=== PATIENT | male | born 1955 | race Two or more races ===

== ENCOUNTER 2024-11-02 21:00 | Inpatient (IN) | payer OTHER ==
[~2024-11-02] VITALS: Ht 167.6 cm; Wt 70.8 kg
[2024-11-02] MEDS ORDERED: LEVALBUTEROL HCL 1.25 MG/3 ML SOLUTION IH SCH (21:25)
[2024-11-02] MEDS ORDERED: PIPERACILLIN/TAZOBACTAM SODIUM 2.25 GM in DEXTROSE 5 % IN WATER 50 ML IV SCH (21:25)
[2024-11-02] MEDS ORDERED: 0.9 % SODIUM CHLORIDE 1,000 ML IV SCH ×2 (21:30→22:30)
[2024-11-02] MEDS ORDERED: LEVALBUTEROL HCL 1.25 MG/3 ML SOLUTION IH ONE (22:21)
[2024-11-02] MEDS ORDERED: IPRATROPIUM BROMIDE 0.5 MG/2.5 ML AMPUL.NEB IH SCH (22:24)
[2024-11-02 22:28] LABS: HEMATOCRIT 32.1 % (39.0-48.0); HEMOGLOBIN 10.6 g/dL (13-16.00); MEAN CELL VOLUME 90.5 fL (80.0-100.00); MEAN CORPUSCULAR HEMOGLOBIN 29.8 pg (27.00-32.0); MEAN CORPUSCULAR HGB CONC 32.9 g/dl (32.0-36.0); PLATELET COUNT 201 K/uL (150-450); RED BLOOD COUNT 3.55 M/uL (4.00-6.00); RED CELL DISTRIBUTION WIDTH 14.8 % (11.5-14.5)
[2024-11-02] MEDS ORDERED: ONDANSETRON HCL 4 MG in 0.9 % SODIUM CHLORIDE 50 ML IV PRN (22:30)
[2024-11-02] MEDS ORDERED: ACETAMINOPHEN 500 MG GEL..CAP PO PRN (22:30)
[2024-11-02 22:31] LABS: ABG pCO2 36.4 mmHg (35-45); BASE EXCESS -2.2 mmol/l; SaO2 97.1 %; Tco2 23.1 mmol/l
[2024-11-02 22:51] LABS: BILIRUBIN TOTAL 0.36 mg/dL (0.3-1.2); CALCIUM 8.8 mg/dL (8.5-10.1); CREATININE SERUM 1.46 mg/dL (0.70-1.30); GFR 47.87; GLOBULINA 3.4 G/DL (2.4-3.5); POTASSIUM 4.59 mEq/L (3.5-5.1); TOTAL PROTEIN 6.4 gm/dL (6.4-8.2)
[2024-11-02 22:53] LABS: o2 32 %
[2024-11-02 22:54] LABS: allen test SATISFACTORY; mode NASAL CANNULA; puncture site RADIAL LEFT
[2024-11-02 22:58] LABS: INR 1.1; PARTIAL THROMBOPLASTIN TIME 26.5 SECONDS (22.0-34.0); PROTHROMBIN TIME 11.9 SECONDS (9.0-11.5)
[2024-11-03] MEDS ORDERED: LEVALBUTEROL HCL 1.25 MG/3 ML SOLUTION IH SCH (01:00)
[2024-11-03 01:56] LABS: URINE APPEARANCE Clear; URINE BILIRRUBIN Negative (NEGATIVE); URINE BLOOD Negative; URINE COLOR Yellow; URINE GLUCOSE Negative (NEGATIVE); URINE KETONE Negative (NEGATIVE); URINE LEUKOCYTE Small; URINE NITRATE Negative; URINE PROTEIN Negative (NEGATIVE); URINE UROBILINOGEN 0.2 E.U./dl
[2024-11-03 02:00] LABS: URINE BACTERIA 166.4 uL (0.0-1933); URINE CAST 3.23 uL (0.0-1.40); URINE EPITHELIAL CELLS 8.3 uL (0.0-38.8); URINE RBC 8.1 uL (0.0-20.8); URINE WBC 18.3 uL (0.0-23.2)
[2024-11-03 02:04] LABS: COVID-19 AG NEGATIVE (NEGATIVE)
[2024-11-03 04:30] VITALS: BP 123/65; O2SAT 94
[2024-11-03] MEDS ORDERED: LEVOTHYROXINE SODIUM 25 MCG TABLET PO SCH (06:00)
[2024-11-03] MEDS ORDERED: ENOXAPARIN SODIUM 30 MG/0.3 ML SYRINGE SUBCUTANEO SCH (09:00)
[2024-11-03] MEDS ORDERED: LevETIRAcetam 500 MG TAB. PO SCH (09:00)
[2024-11-03] MEDS ORDERED: LOSARTAN POTASSIUM 100 MG TABLET PO SCH (09:00)
[2024-11-03] MEDS ORDERED: FAMOTIDINE/PF 20 MG in 0.9 % SODIUM CHLORIDE 8 ML IV PUSH SCH (09:00)
[2024-11-03 09:21] VITALS: BP 126/69; O2SAT 94
[2024-11-03] MEDS ORDERED: AMLODIPINE BESYLATE 5 MG TABLET PO SCH (12:00)
[2024-11-03 16:00] VITALS: BP 146/74; O2SAT 99
[2024-11-03] MEDS ORDERED: QUETIAPINE FUMARATE 100 MG TABLET PO SCH (17:00)
[2024-11-03] MEDS ORDERED: DONEPEZIL HCL 10 MG TABLET PO SCH (17:00)
[2024-11-03] MEDS ORDERED: MEROPENEM 500 MG/VIAL VIAL IV SCH (17:00)
[2024-11-03 19:54] LABS: ABG PH 7.434 (7.35-7.45); ABG PO2 73.1 mmHg (80-100); ABG pCO2 35.5 mmHg (35-45); BASE EXCESS -0.4 mmol/l; BICARBONATE 23.3 mmol/l (23-25); Tco2 24.4 mmol/l
[2024-11-03 20:31] LABS: allen test SATISFACTORY; mode ROOM AIR; o2 21 %; puncture site RADIAL LEFT
[2024-11-03] MEDS ORDERED: LORazepam 1 MG TABLET PO SCH (21:00)
[2024-11-04 01:07] VITALS: BP 125/57
[2024-11-04 05:46] LABS: HEMATOCRIT 29.5 % (39.0-48.0); HEMOGLOBIN 9.9 g/dL (13-16.00); MEAN CELL VOLUME 90.8 fL (80.0-100.00); MEAN CORPUSCULAR HEMOGLOBIN 30.4 pg (27.00-32.0); MEAN CORPUSCULAR HGB CONC 33.5 g/dl (32.0-36.0); PLATELET COUNT 162 K/uL (150-450); RED BLOOD COUNT 3.25 M/uL (4.00-6.00); RED CELL DISTRIBUTION WIDTH 14.9 % (11.5-14.5)
[2024-11-04 06:35] LABS: ALBUMIN 2.7 gm/dL (3.4-5.0); BILIRUBIN TOTAL 0.3 mg/dL (0.3-1.2); CALCIUM 8.4 mg/dL (8.5-10.1); CREATININE SERUM 1.31 mg/dL (0.70-1.30); GFR 54.25; GLOBULINA 2.8 G/DL (2.4-3.5); MAGNESIUM 1.9 mg/dL (1.8-2.4); PHOSPHOROUS 2.9 mg/dL (2.5-4.9); POTASSIUM 4.45 mEq/L (3.5-5.1); TOTAL PROTEIN 5.5 gm/dL (6.4-8.2)
[2024-11-04 06:38] LABS: C-REACTIVE PROTEIN 2.65 MG/DL (0.00-0.29)
[2024-11-04 18:25] VITALS: BP 178/87
[2024-11-05 01:18] VITALS: BP 132/80; O2SAT 199
[2024-11-05 09:33] VITALS: BP 153/81
[2024-11-05 17:50] VITALS: BP 170/80
[2024-11-06 01:00] VITALS: BP 105/69; O2SAT 96
[2024-11-06 09:30] VITALS: BP 150/82
[2024-11-06 19:36] VITALS: BP 174/84
== END 2024-11-06 20:40 | disposition home or self-care (01) | DRG 871 ==
LOC: ER 21:00 → MEDI 22:50
PROVIDERS: General Practice; Internal Medicine; Internal Medicine Infectious Disease; ADMIT Internal Medicine; ATTEND Internal Medicine
PROC: BT4JZZZ Ultrasonography of Kidneys and Bladder (ICD-10-PCS; 2024-11-02)
PROC: 3E0F7GC Introduction of Other Therapeutic Substance into Respiratory Tract, Via Natural or Artificial Opening (ICD-10-PCS; 2024-11-02)
PROC: BB24ZZZ Computerized Tomography (CT Scan) of Bilateral Lungs (ICD-10-PCS; principal; 2024-11-03)
DX: A41.9 Sepsis, unspecified organism (principal); J18.9 Pneumonia, unspecified organism; J69.0 Pneumonitis due to inhalation of food and vomit; N17.8 Other acute kidney failure; I10 Essential (primary) hypertension; E03.9 Hypothyroidism, unspecified; F03.90 Unspecified dementia, unspecified severity, without behavioral disturbance, psychotic disturbance, mood disturbance, and anxiety

== ENCOUNTER 2025-02-11 23:03 | Inpatient (IN) | payer OTHER ==
[~2025-02-11] VITALS: Ht 167.6 cm; Wt 72.6 kg
[2025-02-11] MEDS ORDERED: COZAAR100 MG (23:21)
[2025-02-11] MEDS ORDERED: NAMENDA (23:22)
[2025-02-11] MEDS ORDERED: SEROQUEL (23:22)
[2025-02-11] MEDS ORDERED: ATIVAN2 M1 (23:22)
[2025-02-11] MEDS ORDERED: ARICEPT5 MG (23:22)
[2025-02-11] MEDS ORDERED: KEPPRA (23:23)
[2025-02-12] MEDS ORDERED: 0.9 % SODIUM CHLORIDE 1,000 ML IV SCH (01:00)
[2025-02-12 01:58] LABS: BASO % 0.1 % (0.1-1.2); EOS # 0.00 (0.04-0.54); EOS % 0.0 % (0.7-7.0); LYMPH # 0.57 (1.18-3.74); LYMPH % 2.8 % (19.3-53.1); MEAN PLATELET VOLUME 11.40 fl (9.4-12.4); MONO # 0.87 (0.24-0.82); MONO % 4.2 % (4.7-12.5); NEUT # 18.92 (1.56-6.13); NEUT % 92.1 % (34.0-71.1); RED CELL DISTRIBUTION WIDTH 13.5 % (11.6-14.4)
[2025-02-12 02:25] LABS: ALT/SGPT 15.0 U/L (12-78); AST/SGOT 6.0 U/L (15-37); BILIRUBIN TOTAL 0.36 mg/dL (0.3-1.2); BUN CREA RATIO 22.0 (7.0-25.0); CREATININE SERUM 1.62 mg/dL (0.70-1.30); GFR 42.46; GLOBULINA 3.6 G/DL (2.4-3.5); LDH 112.0 U/L (87-241); OSMOLALITY SERUM 298.0 MOSM/KG (275-295); PHOSPHOKINASE CREATININE 45.0 U/L (39-308)
[2025-02-12 02:56] LABS: GLUCOSE FASTING 223.0 mg/dL (65-100)
[2025-02-12] MEDS ORDERED: CEFTRIAXONE SODIUM 2,000 MG VIAL ONE (03:07)
[2025-02-12] MEDS ORDERED: CEFTRIAXONE SODIUM 2,000 MG VIAL IV ONE (03:15)
[2025-02-12 03:20] LABS: COVID-19 AG NEGATIVE (NEGATIVE)
[2025-02-12 03:43] LABS: URINE APPEARANCE Clear; URINE BILIRRUBIN Negative (NEGATIVE); URINE BLOOD Negative; URINE COLOR Yellow; URINE GLUCOSE Negative (NEGATIVE); URINE KETONE Trace (NEGATIVE); URINE LEUKOCYTE Negative; URINE NITRATE Negative; URINE PROTEIN 30 (NEGATIVE); URINE UROBILINOGEN 0.2 E.U./dl
[2025-02-12 03:47] LABS: URINE BACTERIA 33.5 uL (0.0-1933); URINE CAST 2.78 uL (0.0-1.40); URINE EPITHELIAL CELLS 3.2 uL (0.0-38.8); URINE RBC 6.4 uL (0.0-20.8); URINE WBC 4.3 uL (0.0-23.2)
[2025-02-12] MEDS ORDERED: METHYLPREDNISOLONE SOD SUCC 125 MG VIAL IV ONE (04:30)
[2025-02-12] MEDS ORDERED: LEVALBUTEROL HCL 1.25 MG/3 ML SOLUTION IH SCH ×2 (05:00→09:11)
[2025-02-12] MEDS ORDERED: AZITHROMYCIN 500 MG VIAL IV SCH ×3 (06:32→09:17)
[2025-02-12] MEDS ORDERED: AZITHROMYCIN 500 MG VIAL IV ONE (06:35)
[2025-02-12] MEDS ORDERED: AMLODIPINE BESYL5 MG PO (08:40)
[2025-02-12] MEDS ORDERED: BACLOFEN10 MG PO (08:41)
[2025-02-12] MEDS ORDERED: QUETIAPINE FUMA50 MG PO (08:45)
[2025-02-12] MEDS ORDERED: METFORMIN HCL500 M4 (08:45)
[2025-02-12] MEDS ORDERED: SERTRALINE HCL100 MG PO (08:45)
[2025-02-12] MEDS ORDERED: TAMSULOSIN HCL0.4 MG PO (08:46)
[2025-02-12] MEDS ORDERED: LEVOXYL25 MCG PO (08:46)
[2025-02-12] MEDS ORDERED: KEPPRA PO (08:47)
[2025-02-12] MEDS ORDERED: ARICEPT10 MG PO (08:47)
[2025-02-12] MEDS ORDERED: MEMANTINE HCL 5 MG TABLET PO SCH (09:07)
[2025-02-12] MEDS ORDERED: MetFORMIN HCL 500 MG TABLET PO SCH (09:07)
[2025-02-12] MEDS ORDERED: SERTRALINE HCL 50 MG TABLET PO SCH (09:07)
[2025-02-12] MEDS ORDERED: PIPERACILLIN/TAZOBACTAM SODIUM 3.375 GM in 0.9 % SODIUM CHLORIDE 100 ML IV SCH (09:12)
[2025-02-12] MEDS ORDERED: hydrALAZINE HCL 20 MG VIAL IV SCH (09:13)
[2025-02-12] MEDS ORDERED: LOSARTAN POTASSIUM 50 MG TABLET PO SCH (09:13)
[2025-02-12] MEDS ORDERED: PANTOPRAZOLE SODIUM 40 MG/VIAL VIAL IV PUSH SCH (09:14)
[2025-02-12] MEDS ORDERED: GUAIFENESIN 200 MG/10 ML BLIST.PACK PO SCH (09:14)
[2025-02-12] MEDS ORDERED: RIVAROXABAN 10 MG TAB PO SCH (09:14)
[2025-02-12] MEDS ORDERED: SODIUM CHLORIDE 0.45 % 1,000 ML IV SCH (09:15)
[2025-02-12] MEDS ORDERED: ACETAMINOPHEN 650 MG SUPP.RECT RECTAL PRN (09:15)
[2025-02-12] MEDS ORDERED: ONDANSETRON HCL 2 MG/ML VIAL IV PRN (09:15)
[2025-02-12] MEDS ORDERED: LEVALBUTEROL HCL 1.25 MG/3 ML SOLUTION IH ONE (09:15)
[2025-02-12] MEDS ORDERED: ACETAMINOPHEN 500 MG GEL..CAP PO SCH (09:15)
[2025-02-12] MEDS ORDERED: BUDESONIDE 0.5 MG/2 ML AMPUL.NEB IH SCH (09:17)
[2025-02-12] MEDS ORDERED: LEVOTHYROXINE SODIUM 75 MCG TABLET PO SCH (09:17)
[2025-02-12] MEDS ORDERED: LEVOTHYROXINE SODIUM 25 MCG TABLET PO SCH (09:40)
[2025-02-12] MEDS ORDERED: hydrALAZINE HCL 20 MG VIAL ONE (10:27)
[2025-02-12] MEDS ORDERED: GUAIFENESIN 200 MG/10 ML BLIST.PACK PO ONE (10:28)
[2025-02-12] MEDS ORDERED: PIPERACILLIN/TAZOBACTAM SODIUM 3.375 GM VIAL IV ONE (10:28)
[2025-02-12 11:42] LABS: ABG PH 7.464 (7.35-7.45); ABG PO2 65.5 mmHg (80-100); BICARBONATE 19.8 mmol/l (23-25)
[2025-02-12 11:59] VITALS: BP 154/80
[2025-02-12 15:24] LABS: o2 21 %
[2025-02-12 16:40] VITALS: BP 125/63
[2025-02-12] MEDS ORDERED: ATORVASTATIN CALCIUM 20 MG TABLET PO SCH (17:00)
[2025-02-12] MEDS ORDERED: SIMVASTATIN 10 MG TABLET PO SCH (17:00)
[2025-02-12] MEDS ORDERED: LORazepam 2 MG/ML VIAL IV PUSH SCH (21:00)
[2025-02-12] MEDS ORDERED: QUETIAPINE FUMARATE 25 MG TABLET PO SCH (21:00)
[2025-02-12] MEDS ORDERED: AMLODIPINE BESYLATE 5 MG TABLET PO SCH (21:00)
[2025-02-12] MEDS ORDERED: DOCUSATE SODIUM 100MG CAP PO SCH (21:00)
[2025-02-13 02:24] VITALS: BP 138/77; O2SAT 93
[2025-02-13 06:26] LABS: BASO % 0.1 % (0.1-1.2); EOS # 0.00 (0.04-0.54); EOS % 0.0 % (0.7-7.0); LYMPH # 0.79 (1.18-3.74); LYMPH % 6.1 % (19.3-53.1); MEAN PLATELET VOLUME 11.90 fl (9.4-12.4); MONO # 0.71 (0.24-0.82); MONO % 5.4 % (4.7-12.5); NEUT # 11.43 (1.56-6.13); NEUT % 87.7 % (34.0-71.1); RED CELL DISTRIBUTION WIDTH 13.7 % (11.6-14.4)
[2025-02-13 06:51] LABS: INR 1.05
[2025-02-13 07:37] LABS: ALT/SGPT 15 U/L (12-78); AST/SGOT 6 U/L (15-37); BILIRUBIN TOTAL 0.37 mg/dL (0.3-1.2); BILIRUBIN,CONJUGATED < 0.10 mg/dL (0.0-0.2); BUN CREA RATIO 24 (7.0-25.0); CREATININE SERUM 1.31 mg/dL (0.70-1.30); GFR 54.25; GLOBULINA 2.9 G/DL (2.4-3.5); GLUCOSE FASTING 119 mg/dL (65-100); OSMOLALITY SERUM 296 MOSM/KG (275-295)
[2025-02-13 07:46] LABS: TSH 0.138 uIU/mL (0.358-3.74)
[2025-02-13] MEDS ORDERED: AZITHROMYCIN 500 MG VIAL IV ONE (07:46)
[2025-02-13 08:09] VITALS: BP 147/73; O2SAT 92
[2025-02-13] MEDS ORDERED: AZITHROMYCIN 500 MG VIAL IV SCH (09:00)
[2025-02-13 17:01] VITALS: BP 113/62
[2025-02-14 02:44] VITALS: BP 160/74; O2SAT 98
[2025-02-14] MEDS ORDERED: AZITHROMYCIN 500 MG VIAL IV ONE (08:59)
[2025-02-14 09:27] VITALS: BP 146/77; O2SAT 94
[2025-02-14] MEDS ORDERED: LEVALBUTEROL HCL 1.25 MG/3 ML SOLUTION IH SCH (12:00)
[2025-02-14] MEDS ORDERED: PANTOPRAZOLE SODIUM 40 MG TABLET.DR PO SCH (17:00)
[2025-02-14] MEDS ORDERED: BACLOFEN 10 MG TABLET PO SCH (17:00)
[2025-02-14 17:19] VITALS: BP 133/67
[2025-02-15 02:20] VITALS: BP 117/71; O2SAT 96
[2025-02-15] MEDS ORDERED: AZITHROMYCIN 500 MG VIAL IV ONE (07:58)
[2025-02-15 08:26] VITALS: BP 128/76; O2SAT 92
[2025-02-15 11:24] LABS: BASO % 0.2 % (0.1-1.2); EOS # 0.21 (0.04-0.54); EOS % 2.4 % (0.7-7.0); LYMPH # 0.92 (1.18-3.74); LYMPH % 10.6 % (19.3-53.1); MEAN PLATELET VOLUME 10.70 fl (9.4-12.4); MONO # 0.77 (0.24-0.82); MONO % 8.9 % (4.7-12.5); NEUT # 6.70 (1.56-6.13); NEUT % 77.0 % (34.0-71.1); RED CELL DISTRIBUTION WIDTH 13.4 % (11.6-14.4)
[2025-02-15 11:53] LABS: INR 1.13
[2025-02-15 12:00] LABS: ALT/SGPT 25.0 U/L (12-78); AST/SGOT 10.0 U/L (15-37); BILIRUBIN TOTAL 0.58 mg/dL (0.3-1.2); BUN CREA RATIO 11.0 (7.0-25.0); CREATININE SERUM 1.22 mg/dL (0.70-1.30); GFR 58.9; GLOBULINA 3.1 G/DL (2.4-3.5); GLUCOSE FASTING 127.0 mg/dL (65-100); OSMOLALITY SERUM 293.0 MOSM/KG (275-295)
[2025-02-15 16:35] VITALS: BP 139/70; O2SAT 94
[2025-02-16 01:31] VITALS: BP 121/66; O2SAT 98
[2025-02-16] MEDS ORDERED: AZITHROMYCIN 500 MG VIAL IV ONE (07:54)
[2025-02-16] MEDS ORDERED: LevETIRAcetam 500 MG TAB. PO SCH ×2 (09:00→21:00)
[2025-02-16 09:10] VITALS: BP 138/65; O2SAT 94
[2025-02-16 11:58] LABS: ABG PH 7.438 (7.35-7.45); ABG PO2 92.5 mmHg (80-100)
[2025-02-16 11:59] LABS: BICARBONATE 21.1 mmol/l (23-25); o2 32 %
[2025-02-16] MEDS ORDERED: METHYLPREDNISOLONE SOD SUCC 40 MG VIAL IV SCH ×2 (17:00)
[2025-02-16 18:32] VITALS: BP 153/78
[2025-02-16] MEDS ORDERED: LORazepam 2 MG/ML VIAL IM SCH (21:00)
[2025-02-17 00:38] VITALS: BP 102/59; O2SAT 92
[2025-02-17 08:14] LABS: BUN CREA RATIO 12.0 (7.0-25.0); CREATININE SERUM 1.25 mg/dL (0.70-1.30); GFR 57.27; GLUCOSE FASTING 173.0 mg/dL (65-100); OSMOLALITY SERUM 290.0 MOSM/KG (275-295)
[2025-02-17 08:26] LABS: BASO % 0.1 % (0.1-1.2); EOS # 0.00 (0.04-0.54); EOS % 0.0 % (0.7-7.0); LYMPH # 0.30 (1.18-3.74); LYMPH % 3.5 % (19.3-53.1); MEAN PLATELET VOLUME 11.10 fl (9.4-12.4); MONO # 0.14 (0.24-0.82); MONO % 1.6 % (4.7-12.5); NEUT # 8.09 (1.56-6.13); NEUT % 94.2 % (34.0-71.1); RED CELL DISTRIBUTION WIDTH 14.0 % (11.6-14.4)
[2025-02-17] MEDS ORDERED: AZITHROMYCIN 500 MG VIAL IV ONE (08:57)
[2025-02-17] MEDS ORDERED: METHYLPREDNISOLONE SOD SUCC 40 MG VIAL IV SCH (09:00)
[2025-02-17 09:42] VITALS: BP 105/60; O2SAT 97
[2025-02-17] MEDS ORDERED: ONDANSETRON HCL 4 MG in 0.9 % SODIUM CHLORIDE 50 ML IV PRN (14:45)
[2025-02-17 17:58] VITALS: BP 115/53
[2025-02-18] MEDS ORDERED: AZITHROMYCIN 500 MG VIAL IV ONE (07:11)
[2025-02-18 09:00] VITALS: BP 137/67
[2025-02-18] MEDS ORDERED: FLUCONAZOLE IN NACL,ISO-OSM 200 MG/100 ML PIGGYBAG IV STA (11:55)
[2025-02-18 16:11] LABS: FE 44.0 ug/dl (65-175)
[2025-02-18 17:24] VITALS: BP 119/66
[2025-02-19 01:19] VITALS: BP 144/68; O2SAT 97
[2025-02-19 08:22] VITALS: BP 136/74
[2025-02-19] MEDS ORDERED: LOSARTAN POTASSIUM 50 MG TABLET PO SCH (09:00)
[2025-02-19] MEDS ORDERED: METHYLPREDNISOLONE ACETATE 80 MG/ML VIAL IM NR (09:30)
[2025-02-19 11:02] LABS: BASO % 0.1 % (0.1-1.2); EOS # 0.00 (0.04-0.54); EOS % 0.0 % (0.7-7.0); LYMPH # 0.45 (1.18-3.74); LYMPH % 3.0 % (19.3-53.1); MEAN PLATELET VOLUME 10.90 fl (9.4-12.4); MONO # 0.28 (0.24-0.82); MONO % 1.8 % (4.7-12.5); NEUT # 14.17 (1.56-6.13); NEUT % 93.6 % (34.0-71.1); RED CELL DISTRIBUTION WIDTH 13.5 % (11.6-14.4)
[2025-02-19 11:54] LABS: ALT/SGPT 23.0 U/L (12-78); AST/SGOT 8.0 U/L (15-37); BILIRUBIN TOTAL 0.34 mg/dL (0.3-1.2); BUN CREA RATIO 17.0 (7.0-25.0); CREATININE SERUM 1.57 mg/dL (0.70-1.30); GFR 44.02; GLOBULINA 3.2 G/DL (2.4-3.5); GLUCOSE FASTING 188.0 mg/dL (65-100); OSMOLALITY SERUM 306.0 MOSM/KG (275-295)
[2025-02-19] MEDS ORDERED: Cyanocobalamin/Mecobalamin 1 TAB.SL SL SCH (12:00)
[2025-02-19] MEDS ORDERED: SOD FERRIC GLUC COMPLX/SUCROSE 62.5 MG/5 ML AMPUL IV SCH (12:00)
[2025-02-19] MEDS ORDERED: FLUCONAZOLE IN NACL,ISO-OSM 2 MG/ML ML IV SCH (13:00)
[2025-02-19 14:22] LABS: INR 1.36
[2025-02-19 17:06] LABS: ob POSITIVE (NEGATIVE)
[2025-02-19 18:34] VITALS: BP 158/76
[2025-02-20 01:50] VITALS: BP 150/67; O2SAT 99
[2025-02-20] MEDS ORDERED: METFORMIN HCL500 MG PO (07:43)
[2025-02-20] MEDS ORDERED: SERTRALINE HCL100 MG PO (07:43)
[2025-02-20] MEDS ORDERED: GERI-TUSSI100 MG/5 M PO (07:43)
[2025-02-20] MEDS ORDERED: FLUCONAZOLE200 MG PO (07:43)
[2025-02-20] MEDS ORDERED: QUETIAPINE FUMA50 MG PO (07:43)
[2025-02-20] MEDS ORDERED: PANTOPRAZOLE SO40 MG PO (07:43)
[2025-02-20] MEDS ORDERED: SIMVASTATIN10 MG PO (07:43)
[2025-02-20] MEDS ORDERED: BACLOFEN10 MG PO (07:43)
[2025-02-20] MEDS ORDERED: AMOX-CLAV 875-1 EACH PO (07:43)
[2025-02-20] MEDS ORDERED: TAMSULOSIN HCL0.4 MG PO (07:43)
[2025-02-20] MEDS ORDERED: XARELTO10 MG PO (07:43)
[2025-02-20] MEDS ORDERED: Neurin-Sl Tablet Sl SL (07:43)
[2025-02-20] MEDS ORDERED: MEMANTINE HCL5 MG PO (07:43)
[2025-02-20] MEDS ORDERED: ATIVAN2 M1 PO (07:43)
[2025-02-20] MEDS ORDERED: AMLODIPINE BESYL5 MG PO ×2 (07:43)
[2025-02-20] MEDS ORDERED: COZAAR50 MG PO (07:43)
[2025-02-20] MEDS ORDERED: KEPPRA500 MG PO (07:43)
[2025-02-20 08:52] VITALS: BP 127/69; O2SAT 96
[2025-02-20] MEDS ORDERED: METHYLPREDNISOLONE SOD SUCC 40 MG VIAL IV SCH (09:00)
[2025-02-20 11:48] LABS: FOLIC ACID 4.64 ng/ml (4.78-20)
== END 2025-02-20 12:57 | disposition home or self-care (01) | DRG 178 ==
LOC: ER 23:03 → MEDI 02-12 09:26
PROVIDERS: General Practice; ADMIT Internal Medicine; ATTEND Internal Medicine
PROC: BB24ZZZ Computerized Tomography (CT Scan) of Bilateral Lungs (ICD-10-PCS; principal; 2025-02-12)
PROC: 3E0F7GC Introduction of Other Therapeutic Substance into Respiratory Tract, Via Natural or Artificial Opening (ICD-10-PCS; 2025-02-13)
DX: J69.0 Pneumonitis due to inhalation of food and vomit (principal); E87.0 Hyperosmolality and hypernatremia; N17.9 Acute kidney failure, unspecified; G40.89 Other seizures; D64.9 Anemia, unspecified; R13.12 Dysphagia, oropharyngeal phase; G31.09 Other frontotemporal neurocognitive disorder; I12.9 Hypertensive chronic kidney disease with stage 1 through stage 4 chronic kidney disease, or unspecified chronic kidney disease; N18.9 Chronic kidney disease, unspecified; E11.9 Type 2 diabetes mellitus without complications; E03.9 Hypothyroidism, unspecified; F02.80 Dementia in other diseases classified elsewhere, unspecified severity, without behavioral disturbance, psychotic disturbance, mood disturbance, and anxiety; Z74.01 Bed confinement status; Z79.84 Long term (current) use of oral hypoglycemic drugs